=== PATIENT | male | born 1965 | race African-American/Black ===

== ENCOUNTER 2022-09-20 13:47 | Inpatient (IN) | payer OTHER ==
[2022-09-20 14:34] VITALS: BMI 43.6
[2022-09-20] MEDS ORDERED: guaiFENesin 600 MG TABLET.ER (FP) PO PRN (19:52)
[2022-09-20] MEDS ORDERED: BENZONATATE 200 MG CAPSULE PO PRN (19:52)
[2022-09-20] MEDS ORDERED: MAGNESIUM HYDROX 2400MG/30ML ORAL SUSPENSION 30 ML CUP PO PRN (19:52)
[2022-09-20] MEDS ORDERED: BISMUTH SUBSALICYLATE 524 MG/30 ML PO PRN (19:52)
[2022-09-20] MEDS ORDERED: ONDANSETRON *ODT* 4 MG TABLET SL PRN (19:52)
[2022-09-20] MEDS ORDERED: MAG HYDROX/AL HYDROX/SIMETH 30 ML UNIT-DOSE CUP PO PRN (19:52)
[2022-09-20] MEDS ORDERED: LOPERAMIDE HCL 2 MG CAPSULE PO PRN (19:52)
[2022-09-20] MEDS ORDERED: POLYETHYLENE GLYCOL (HEALTHYLAX) 3350 17 GM PACKET PO PRN (19:52)
[2022-09-20] MEDS ORDERED: DICYCLOMINE HCL 10 MG CAPSULE PO PRN (19:52)
[2022-09-20] MEDS ORDERED: BENZOCAINE/MENTHOL (CHLORASEPTIC ) LOZENGE MM PRN (19:52)
[2022-09-20] MEDS ORDERED: P-EPHED 60MG/TRIPROLIDI 2.5MG TABLET PO PRN (19:52)
[2022-09-20] MEDS: THIAMINE HCL 100 MG TABLET (FP) PO SCH (22:02)
[2022-09-20] MEDS: MELATONIN 5 MG TABLETS PO SCH (22:02)
[2022-09-20] MEDS: IBUPROFEN 400 MG TABLET (FP) PO PRN (22:03)
[2022-09-20] MEDS: VITAMINS A AND D TOPICAL OINTMENT 60 GM TUBE TP SCH (23:48)
[2022-09-21] MEDS: VITAMINS A AND D TOPICAL OINTMENT 60 GM TUBE TP SCH ×4 (05:50→23:56)
[2022-09-21] MEDS ORDERED: chlordiazePOXIDE HCL 25 MG CAPSULE PO PRN (09:07)
[2022-09-21] MEDS: IBUPROFEN 600 MG TABLET (FP) PO PRN ×2 (11:37→17:37)
[2022-09-21] MEDS: PRENATAL VITAMINS W/ FOLIC ACID TABLET (FP) PO SCH (11:40)
[2022-09-21] MEDS: chlordiazePOXIDE HCL 25 MG CAPSULE PO SCH ×3 (11:40→22:56)
[2022-09-21] MEDS: THIAMINE HCL 100 MG TABLET (FP) PO SCH (22:56)
[2022-09-21] MEDS: MELATONIN 5 MG TABLETS PO SCH (22:56)
[2022-09-22] MEDS: chlordiazePOXIDE HCL 25 MG CAPSULE PO SCH ×4 (06:06→22:36)
[2022-09-22] MEDS: VITAMINS A AND D TOPICAL OINTMENT 60 GM TUBE TP SCH ×3 (06:07→17:56)
[2022-09-22] MEDS: PRENATAL VITAMINS W/ FOLIC ACID TABLET (FP) PO SCH (10:53)
[2022-09-22] MEDS: MELATONIN 5 MG TABLETS PO SCH (22:35)
[2022-09-22] MEDS: THIAMINE HCL 100 MG TABLET (FP) PO SCH (22:36)
[2022-09-22] MEDS: IBUPROFEN 600 MG TABLET (FP) PO PRN (22:37)
[2022-09-23] MEDS: VITAMINS A AND D TOPICAL OINTMENT 60 GM TUBE TP SCH ×4 (00:56→17:52)
[2022-09-23] MEDS: chlordiazePOXIDE HCL 25 MG CAPSULE PO SCH ×4 (05:45→22:49)
[2022-09-23] MEDS: IBUPROFEN 600 MG TABLET (FP) PO PRN ×2 (05:46→10:46)
[2022-09-23] MEDS: PRENATAL VITAMINS W/ FOLIC ACID TABLET (FP) PO SCH (10:46)
[2022-09-23] MEDS: THIAMINE HCL 100 MG TABLET (FP) PO SCH (22:48)
[2022-09-23] MEDS: MELATONIN 5 MG TABLETS PO SCH (22:48)
[2022-09-24] MEDS ORDERED: chlordiazePOXIDE HCL 10 MG CAPSULE PO PRN
[2022-09-24] MEDS: chlordiazePOXIDE HCL 10 MG CAPSULE PO SCH ×4 (05:28→23:54)
[2022-09-24] MEDS: VITAMINS A AND D TOPICAL OINTMENT 60 GM TUBE TP SCH ×4 (06:09→18:19)
[2022-09-24] MEDS: PRENATAL VITAMINS W/ FOLIC ACID TABLET (FP) PO SCH (10:48)
[2022-09-24] MEDS: IBUPROFEN 400 MG TABLET (FP) PO PRN (10:50)
[2022-09-24] MEDS: IBUPROFEN 600 MG TABLET (FP) PO PRN (18:17)
[2022-09-24] MEDS: THIAMINE HCL 100 MG TABLET (FP) PO SCH (23:54)
[2022-09-24] MEDS: MELATONIN 5 MG TABLETS PO SCH (23:54)
[2022-09-25] MEDS: VITAMINS A AND D TOPICAL OINTMENT 60 GM TUBE TP SCH ×5 (00:04→23:50)
[2022-09-25] MEDS: chlordiazePOXIDE HCL 10 MG CAPSULE PO SCH ×3 (05:30→18:04)
[2022-09-25] MEDS: PRENATAL VITAMINS W/ FOLIC ACID TABLET (FP) PO SCH (10:29)
[2022-09-25] MEDS: IBUPROFEN 600 MG TABLET (FP) PO PRN (10:29)
[2022-09-25 17:25] VITALS: RESP 18
[2022-09-25] MEDS: IBUPROFEN 400 MG TABLET (FP) PO PRN (18:07)
[2022-09-25] MEDS: MELATONIN 5 MG TABLETS PO SCH (22:05)
[2022-09-25] MEDS: THIAMINE HCL 100 MG TABLET (FP) PO SCH (22:05)
[2022-09-26] MEDS ORDERED: chlordiazePOXIDE HCL 10 MG CAPSULE PO ONE (05:00)
[2022-09-26] MEDS: VITAMINS A AND D TOPICAL OINTMENT 60 GM TUBE TP SCH (06:59)
[2022-09-26 09:11] VITALS: BP 137/90; PULSE 82; TEMP 98.8
== END 2022-09-26 09:11 | disposition home or self-care (01) | DRG 774 ==
LOC: YASAS 13:47 → Y6N 20:15 → Y3N 09-25 14:54
PROVIDERS: ADMIT Allergy & Immunology; ATTEND Surgery
PROC: HZ2ZZZZ Detoxification Services for Substance Abuse Treatment (ICD-10-PCS; principal; 2022-09-20)
DX: F10.230 Alcohol dependence with withdrawal, uncomplicated (principal); F14.20 Cocaine dependence, uncomplicated; F41.9 Anxiety disorder, unspecified; Z59.02 Unsheltered homelessness
CPT/HCPCS: C9803-CS; U0003; U0005